=== PATIENT | male | born 1960 ===

== ENCOUNTER → 2018-09-29 21:13 | Outpatient (REF) | payer OTHER, MEDICAID, SELFPAY ==
[2018-09-29 21:56] LABS: Add Manual Diff / Slide Review NO; Basophils Absolute Auto 0 /uL (0-100); Basophils Percent Auto 0.5 % (0-2); Eosinophils Absolute Auto 100 /uL (0-450); Eosinophils Percent Auto 1.1 % (2-4); Hematocrit 47.7 % (41-53); Hemoglobin 16.1 g/dL (13.5-17.5); Lymphocytes Absolute Auto 1300 /uL (1100-4500); Lymphocytes Percent Auto 16.5 % (25-40); Mean Corpuscular HGB Conc 33.8 % (30-36); Mean Corpuscular Hemoglobin 32.5 PG (26-34); Monocytes Absolute Auto 700 /uL (0-900); Monocytes Percent Auto 8.4 % (3-14); Neutrophils Absolute Auto 6000 /uL (1500-7000); Neutrophils Percent Auto 73.5 % (50-75); Platelet Count 264 X10^3/uL (150-400); Red Blood Cell Count 4.97 X10^6/uL (4.5-5.9); Red Cell Distribution Width 13.6 % (11.6-14.8); White Blood Cell Count 8.1 X10^3/uL (4.5-11.0)
[2018-09-29 21:58] LABS: HEMOLYSIS < 15 (0-50)
[2018-09-29 22:03] LABS: Alanine Aminotransferase 23 IU/L (21-72); Albumin 4.6 g/dL (3.5-5.0); Albumin Globulin Ratio 1.7 (1.0-2.8); Alkaline Phosphatase 69 U/L (38-126); Aspartate Aminotransferase 21 IU/L (17-59); BUN Creatinine Ratio 16.3 (6-22); Bilirubin Total 0.6 mg/dL (0.2-1.3); Blood Urea Nitrogen 13 mg/dL (9-20); Calcium 9.8 mg/dL (8.4-10.2); Carbon Dioxide 26 mmol/L (22-32); Chloride 103 mmol/L (98-107); Estimated Glomerular Filt Rate > 60.0 mL/min (>60); Globulin 2.7 g/dL (1.7-4.1); Glucose 124 mg/dL (70-100); Potassium 4.3 mmol/L (3.4-5.1); Sodium 139 mmol/L (137-145); Total Protein 7.3 g/dL (6.3-8.2)
[2018-09-29 22:42] LABS: Ferritin 62.5 ng/mL (17.9-464)
[2018-09-30 01:31] LABS: High Sensitivity CRP - Cardiac 1.1 mg/L (1.0-3.0)
[2018-09-30 01:56] LABS: Prostate Specific Antigen 0.662 ng/mL (0.10-4.00)
[2018-10-03 14:52] LABS: Complement C3 114 mg/dL (82-185)
[2018-10-04 14:54] LABS: Homocysteine 21.9 umol/L (< 11.4)
[2018-10-06 11:13] LABS: Lipoprotein (a) 14 nmol/L (<75)
== END ==
LOC: LAB 21:13
PROVIDERS: Visit Provider Naturopath
DX: Z12.5 Encounter for screening for malignant neoplasm of prostate (principal); Z00.01 Encounter for general adult medical examination with abnormal findings
CPT/HCPCS: 36415; 80053; 82728; 83090; 83695; 84153; 84403; 85025; 86140; 86160

== ENCOUNTER → 2018-10-03 21:22 | Outpatient (REF) | payer OTHER, MEDICAID, SELFPAY ==
[2018-10-03 22:53] LABS: Fibrinogen 392 mg/dL (211-428)
== END ==
LOC: LAB 21:22
PROVIDERS: Visit Provider Naturopath
DX: Z12.5 Encounter for screening for malignant neoplasm of prostate (principal); Z00.01 Encounter for general adult medical examination with abnormal findings
CPT/HCPCS: 36415; 85384